=== PATIENT | female | born 1995 | race Caucasian/White ===

== ENCOUNTER 2017-10-17 03:11 | Outpatient (CLI) | payer BC, MEDICAID, SELFPAY ==
--- NOTE | 2017-10-17 13:48 | DI.REPORT_ITS ---
SYMPTOMS/DIAGNOSIS: SURVEY/DATING, Z34.92 OB ULTRASOUND: Many abnormalities cannot be diagnosed. A normal exam does not exclude a congenital anomaly. Radiology No. [id number] LMP: Exam Date: WW wks days on EDC ([facility]) Confirmed: HISTORY: ---- PREDICTED GESTATIONAL AGE NUMBER 24+3 weeks with a range of 23+3 weeks to 25+3 weeks. 1 Determined by___1ST US___LMP_X__HISTORY PLACENTA PRESENTATION Grade I Cephalic___ Anterior___Posterior_X__ Breech____ Right Left Transverse(head right___ Fundal___Low-lying___Previa___ Transverse(head left___ Varying__X____ BIOMETRY AMNIOTIC FLUID BPD: 55 mm 22+5 weeks Normal HC: 213 mm 23+3 weeks AC: 185 mm 23+2 weeks FL: 43 mm 24+1 weeks AMNIOTIC FLUID INDEX >26 WK CRL: mm weeks Cisterna Magna: 5 mm CI: 76 RUQ: LUQ Cerebellum: 2.3 cm EFW: 612 grams Percentile RLQ: LLQ Total: cms Composite AGE= 23+3 wks EDC by US: 02/10/18 BIOPHYSICAL PROFILE ANATOMY IDENTIFIED SCORE 0/2 Heart: 4-Chamber_X__Rate:BPM 133 LVOT:____X RVOT:___X Amniotic Fluid(>2cms)____ Stomach:____X___ Kidneys:___X____ Respirations (>30 secs) Bladder:___X Post. Fossa:__X Body Flex/Extension 3-vessel cord:___X____Ventricles:____X Cord insertion:__X___ Lips:_X___ Extremity Flex/Extension Spinal morphology:__X Nose:__X___ Total Score= Palate:__X NS=not seen COMMENTS: There are no prior comparison exams. Transabdominal and transvaginal exams were performed. The fetus was in variable position during the exam. The placenta is low-lying with the tip of the placenta measuring 1-2 cm from the internal os. The placenta is otherwise unremarkable in appearance. The biometric measurements correspond to 23 weeks 3 days and an EDC of January,. There is mild bilateral symmetric renal pelvic dilatation. No calyceal dilatation is visible. The amount of amniotic fluid appears normal. No additional abnormalities are seen. IMPRESSION: 1. Low-lying placenta. 2. Mild bilateral pelviectasis.
== END 2017-10-17 03:12 ==
PROVIDERS: Visit Provider Obstetrics & Gynecology
DX: Z34.92 Encounter for supervision of normal pregnancy, unspecified, second trimester (principal); O44.42 Low lying placenta NOS or without hemorrhage, second trimester
CPT/HCPCS: 76805

== ENCOUNTER 2017-10-20 15:58 | Outpatient (REF) | payer BC, MEDICAID, SELFPAY ==
[2017-10-20 16:35] LABS: *AMPHETAMINES SCREEN URINE Negative (Negative); *BARBITURATES SCREEN URINE Negative (Negative); *BENZODIAZEPINES SCREEN URINE Negative (Negative); Cannabinoids THC Negative (Negative); Cocaine Screen,Urine Negative (Negative); METHADONE URINE SCREEN Negative (Negative); OPIATES URINE SCREEN Negative (Negative)
[2017-10-20 16:38] LABS: Tricyclic Antidepressants Negative (Negative)
[2017-10-24 09:51] LABS: Buprenorphine Negative; Norbuprenorphine Negative
== END 2017-10-20 15:59 ==
LOC: LBN 15:58
PROVIDERS: Visit Provider Advanced Practice Midwife
DX: Z60.9 Problem related to social environment, unspecified (principal); Z34.92 Encounter for supervision of normal pregnancy, unspecified, second trimester
CPT/HCPCS: 80307